=== PATIENT | female | born 1990 | race Two or more races ===

== ENCOUNTER 2017-12-23 21:25 | Inpatient (IN) | payer OTHER ==
[2017-12-23] MEDS ORDERED: CLINDAMYCIN 900 MG PREMIX IVPB 900 MG/50 ML BAG IVPB ONE (22:11)
[2017-12-23] MEDS ORDERED: TUBERCULIN PPD 5 TU/0.1ML SYRINGE (IN PATIENT USE ONLY) ID ONE (22:14)
[2017-12-23] MEDS ORDERED: ELECTROLYTE-148 SOLN 1,000 ML IV SCH (22:15)
--- NOTE | 2017-12-23 22:20 | HP ---
Past Medical History - Admission History of Present Illness: 27 up @ 40 2/7 wks by first trimester ultrasound, EDC 12/21/2017 complicated by: 1. GBS positive, Penicillin allergy Culture sensitive to clindamycin, 11/24/2017 2. Personal history of pyloric stenosis s/p repair as a child 3. RUQ pain at 25 wks, found to have gallbladder polyp and sludge Patient reports with chief complaint of contractions which began 2 days ago. She reports increased in intensity and frequency at approximately 2100. She endorses movement, denies leakage of fluid or vaginal bleeding. Limitations to Obtaining History: No Limitations - Past Medical History Cardiovascular: No: HTN Pulmonary: No: Asthma Gastrointestinal: No: GERD ...: 1 ...Para: 0 ...Term: 0 ...: 0 ...Spon : 0 ...Induced : 0 ...EDC by Sono: 12/21/17 Heme/Onc: No: Anemia - Past Surgical History Hx Myomectomy: No Hx Transabdominal Cerclage: No Additional Surgical History: Pyloric Stenosis repair - Smoking History Have you smoked in the past 12 months: No - Alcohol/Substance Use Hx Alcohol Use: No History of Substance Use: reports: None - Social History History of Recent Travel: No Home Medications - Allergies Allergies/Adverse Reactions: Allergies Allergy/AdvReac Type Severity Reaction Status Date / Time Penicillins Allergy Severe Verified 12/22/17 06:19 - Home Medications Home Medications: Ambulatory Orders Vit Calc,Iron,Folic [ Vitamins] 1 each PO DAILY 12/22/17 Family Disease History - Family Disease History Family History: Denies Review of Systems - Review of Systems Constitutional: reports: No Symptoms HENT: reports: No Symptoms Cardiovascular: reports: No Symptoms Respiratory: reports: No Symptoms Gastrointestinal: reports: No Symptoms Genitourinary: reports: No Symptoms Breasts: reports: No Symptoms Reported Musculoskeletal: reports: No Symptoms Integumentary: reports: No Symptoms Neurological: reports: No Symptoms Endocrine: reports: No Symptoms Hematology/Lymphatic: reports: No Symptoms Psychiatric: reports: No Symptoms Physical Exam - Maternity Constitutional: Yes: Well Nourished, No Distress, Calm Cardiovascular: Yes: Regular Rate and Rhythm Lungs: Clear to auscultation - Abdominal Exam/OB Fundal Height: 40 Number of Fetuses: Single Contractions: Yes Regularity: Regular Intensity: Mod/Strong Monitor Mode: External Heart Rate (range): 155 Category: I Accelerations: Non-Uniform Decelerations: None - Vaginal Exam/OB Vaginal Bleediing: No Speculum Exam: No Dilatation (cm): 6 Effacement (%): 100 Amniotic Membrane Status: Intact Presentation: Vertex/Position Station: -1 - Physical Exam Psychiatric: Yes: Alert, Oriented - Labs Lab Results: PNL: O positive, antibody negative; RPR NR; HBS Ag Neg; HCV neg; HIV neg; GBS pos, as above; GCT WNL; Hg Jazz WNL; Parvo Non-immune; Varicella Immune Hemorrhage Risk Assessment - Risk Factors Medium Risk Factors: Yes: None High Risk Factors: Yes: None Risk Score: 1 Risk Level: Medium Risk Assessment/Plan 27 yo @ 40+ wks active labor 1. Consents reviewed and signed 2. Routine labs collected and sent 3. GBS positive - clindamycin resistant 4. Category I FHT 5. Patient desires epidural for pain control 6. Will proceed with expectant management
[2017-12-23] MEDS ORDERED: CLINDAMYCIN PHOSPHATE 600 MG/4 ML VIAL ONE (22:34)
[2017-12-23 22:46] LABS: BASO % 0.2 % (0-2.0); EOS % 0.2 % (0-4.5); HEMATOCRIT 34.8 % (32.4-45.2); HEMOGLOBIN 11.7 GM/dL (10.7-15.3); LYMPH % 15.3 % (8-40); MCH 28.4 pg (25.7-33.7); MCHC 33.7 g/dl (32.0-36.0); MEAN CELL VOLUME 84.3 fl (80-96); MEAN PLT VOLUME 9.4 fl (7.5-11.1); MONO % 6.7 % (3.8-10.2); NEUT % 77.6 % (42.8-82.8); PLATELET COUNT 250 K/MM3 (134-434); RBC 4.12 M/mm3 (3.60-5.2); RDW 15.4 % (11.6-15.6); WHITE BLOOD COUNT 13.3 K/mm3 (4.0-10.0)
[2017-12-23 22:58] LABS: INR 0.96 (0.82-1.09); PROTHROMBIN TIME (PATIENT) 10.8 SEC (9.98-11.88)
[2017-12-23 23:05] LABS: ANION GAP 6 (8-16); BLOOD UREA NITROGEN 8 mg/dL (7-18); CALCIUM 8.8 mg/dL (8.5-10.1); CHLORIDE 106 mmol/L (98-107); CO2 25 mmol/L (21-32); CREATININE 0.6 mg/dL (0.55-1.02); GLUCOSE,RANDOM 94 mg/dL (74-106); POTASSIUM 4.1 mmol/L (3.5-5.1); SODIUM 137 mmol/L (136-145)
[2017-12-23] MEDS ORDERED: FENTANYL/BUPIVACAINE/NS/PF - PCEA - 50 ML DISP.SYRIN EP ONE (23:09)
[2017-12-23] MEDS ORDERED: BUPIVACAINE HCL/PF 0.25% (2.5MG/ML) 10 ML VIAL ONE (23:12)
[2017-12-23] MEDS ORDERED: NALOXONE HCL 0.4 MG/ML VIAL IVPUSH PRN (23:38)
[2017-12-23] MEDS ORDERED: FENTANYL/BUPIVACAINE/NS/PF - PCEA - 50 ML DISP.SYRIN EP SCH (23:45)
--- NOTE | 2017-12-24 00:29 | PN ---
Ante-Partal Exam - Subjective Subjective: Patient comfortable s/p epidural Vital Signs: Vital Signs Temperature 97.6 F 12/24/17 00:00 Pulse Rate 84 12/23/17 23:40 Respiratory Rate 20 12/23/17 23:40 Blood Pressure 123/80 12/23/17 23:40 O2 Sat by Pulse Oximetry (%) 100 12/23/17 23:40 Bleeding: No Headache: No Visual changes: No Right upper quadrant pain: No - Contractions Contractions: Yes Regularity: Regular Intensity: Unaware Monitor Mode: External - Exam during Labor Heart Rate: 135 Variability: Moderate Category: I Monitor Accelerations: Present Monitor Decelerations: None Exam: Vaginal Dilatation (cm): 7 Amniotic Membrane Status: Ruptured Amniotic Fluid: Clear Presentation: Vertex Station: 0 - Intrapartum Hemorrhage Risk Medium Risk Factors: None High Risk Factors: None Risk Score: 0 Risk Level: Low Risk - Assessment/Plan Assessment/Plan: 27 yo @ 40 wks active labor 1. AROM performed, clear fluid 2. GBS positive, on clindamycin 3. Category I FHT 4. Pain well controlled with epidural 5. Will proceed with expectant management
[2017-12-24] MEDS ORDERED: FENTANYL/BUPIVACAINE/NS/PF - PCEA - 50 ML DISP.SYRIN EP ONE ×4 (03:29→14:15)
[2017-12-24] MEDS: CLINDAMYCIN 600MG PREMIX IVPB 600 MG/50 ML BAG IVPB SCH ×3 (04:00→18:04)
[2017-12-24] MEDS ORDERED: ELECTROLYTE-148 SOLN 1,000 ML IV ONE (04:30)
--- NOTE | 2017-12-24 04:44 | PN ---
Ante-Partal Exam - Subjective Subjective: Patient reports contractions improved s/p epidural. Reports orr catheter causes discomfort. Vital Signs: Vital Signs Temperature 98.9 F 12/24/17 04:00 Pulse Rate 84 12/24/17 03:15 Respiratory Rate 20 12/24/17 03:15 Blood Pressure 118/80 12/24/17 03:15 O2 Sat by Pulse Oximetry (%) 98 12/24/17 03:15 Bleeding: No Headache: No Visual changes: No Right upper quadrant pain: No - Contractions Contractions: Yes Regularity: Regular Intensity: Unaware Monitor Mode: External - Exam during Labor Heart Rate: 130 Variability: Moderate Category: I Monitor Decelerations: None Exam: Vaginal Dilatation (cm): 7-8 Effacement (%): 100 Amniotic Membrane Status: Ruptured Presentation: Vertex Station: 0 - Intrapartum Hemorrhage Risk Medium Risk Factors: None High Risk Factors: None Risk Score: 0 Risk Level: Low Risk - Assessment/Plan Assessment/Plan: 27 yo active labor 1. Inadequate cervical change. IUPC placed; Inadequate contractions noted. Will start pitocin 2. GBS pos, on clinda 3. Pain well controlled with epidural 4. Will continue expectant management
[2017-12-24] MEDS ORDERED: OXYTOCIN 30 UNITS in 0.9% NS 30 UNIT/500 ML INFUS.BAG IVPB SCH (04:45)
--- NOTE | 2017-12-24 11:12 | PN ---
Ante-Partal Exam - Subjective Subjective: Patient reports pressure Vital Signs: Vital Signs Temperature 98.9 F 12/24/17 11:00 Pulse Rate 74 12/24/17 11:00 Respiratory Rate 18 12/24/17 11:00 Blood Pressure 120/68 12/24/17 11:00 O2 Sat by Pulse Oximetry (%) 98 12/24/17 06:30 Bleeding: Yes (bloody show) Headache: No Visual changes: No Right upper quadrant pain: No - Contractions Contractions: Yes Regularity: Regular Monitor Mode: External - Exam during Labor Heart Rate: 140 Variability: Moderate Category: I Monitor Accelerations: Present Monitor Decelerations: None Exam: Vaginal Dilatation (cm): 9.5 Effacement (%): 100 Amniotic Membrane Status: Bulging Presentation: Vertex Station: +2 - Intrapartum Hemorrhage Risk Medium Risk Factors: None High Risk Factors: None Risk Score: 0 Risk Level: Low Risk - Assessment/Plan Assessment/Plan: 27 yo active labor 1. unchanged cervix in 2 hours. Unable to reduce cervix. discussed protracted labor curve. Reviewed possible etiologies of labor dystocia including inadequate contractions, CPD Reviewed risk of shoulder dystocia, resultant neurologic injury and complications Discussed offer for - patient declines at this time Plan to monitor and reassess in 1 hour 2. GBS pos, on clindamycin 3. Pain well controlled with epidural 4. Will continue to monitor
--- NOTE | 2017-12-24 15:10 | PN ---
Progress Note (short form) - Note Progress Note: Patient examined found to be FD, +1 station, pushing for approximately 2.5 hours. Discussed poor descent of head, discussed delivery via delivery. Discussed risks including but not limited to infection, bleeding requiring transfusion and damage to surrounding organs such as the bowel or bladder. Discussed risk of injury to infant. Discussed risk of wound infection and separation. Discussed need for planning of future children and possibility of abnormal placentation. All questions answered. Patient expressed understanding. Nursing and OR staff notified. Will proceed to OR
[2017-12-24] MEDS ORDERED: PHENYLEPHRINE HCL 10 MG/1 ML SINGLE DOSE VIAL ONE (15:21)
[2017-12-24] MEDS ORDERED: LIDOCAINE HCL/PF 2% SDV 5ML VIAL ONE (15:29)
[2017-12-24] MEDS ORDERED: OXYTOCIN 10 UNITS/ML VIAL ONE (15:34)
[2017-12-24] MEDS ORDERED: MIDAZOLAM HCL 2 MG/2 ML SINGLE DOSE VIAL ONE (15:49)
[2017-12-24 16:23] LABS: ARTERIAL BLOOD GAS BASE EXCESS -1.5 meq/l (-2-2); ARTERIAL BLOOD GAS PCO2 51.9 mmHg (35-45); ARTERIAL BLOOD GAS pH 7.31 (7.35-7.45)
[2017-12-24 16:29] LABS: VENOUS PC02 41.8 mmHg (38-52); VENOUS PH 7.36 (7.32-7.42)
[2017-12-24 16:30] LABS: VENOUS PO2 23.7 mmHg (28-48)
[2017-12-24] MEDS ORDERED: WITCH HAZEL 50% (TUCKS) 40 PAD/JAR PAD TP PRN (16:30)
[2017-12-24] MEDS ORDERED: IBUPROFEN 800 MG/8 ML IJ IVPB PRN (16:30)
[2017-12-24] MEDS ORDERED: SENNOSIDES/DOCUSATE COMBO (SENNA PLUS) TABLET (UD) PO PRN (16:30)
[2017-12-24] MEDS ORDERED: BENZOCAINE 28 GM HEMORRHOIDAL OINTMENT TP PRN (16:30)
[2017-12-24] MEDS ORDERED: BENZOCAINE 20% 57 GM BOTTLE TP PRN (16:30)
[2017-12-24] MEDS ORDERED: METHYLERGONOVINE MALEATE 0.2 MG/1 ML AMP IM PRN (16:30)
--- NOTE | 2017-12-24 16:30 | PN ---
Delivery - Delivery Section: Primary Type of Anesthesia: Epidural EBL (cc): 700 Delivery, Single - Condition of Infant Gender: Female Weight: 7 lb 13 oz Position: Right, OT - 1 Minute Total Score: 9 - [place] Feeding Plan Initial Plan: Elected not to breastfeed exclusively throughout hospitalization Remarks - Remarks Remarks: Surgeon: Con; Assist: Elia; Anesthesia: Dr. Drummond EBL 700 IVF 1100 UOP 350 Dictation: [id number]
[2017-12-24 16:36] LABS: ARTERIAL BLD GAS O2 SATURATION 10.2 % (90-98.9); ARTERIAL BLOOD GAS PO2 10.8 mmHg (80-100)
[2017-12-24] MEDS ORDERED: ONDANSETRON 4 MG/2 ML VIAL IVPUSH PRN (16:47)
[2017-12-24] MEDS ORDERED: OXYTOCIN 20 UNITS in 0.9% NS 20 UNIT/1,000 ML INFUS.BAG IV SCH (17:00)
[2017-12-24] MEDS ORDERED: OXYTOCIN 20 UNITS in 0.9% NS 20 UNIT/1,000 ML INFUS.BAG IV ONE (17:08)
--- NOTE | 2017-12-24 17:20 | OP ---
DATE OF OPERATION: 12/24/2017 ATTENDING PHYSICIAN: Raya Andujar MD PREOPERATIVE DIAGNOSES: Intrauterine , 40 weeks, failure to descend. POSTOPERATIVE DIAGNOSES: Intrauterine , 40 weeks, failure to descend. SURGEON: Raya Andujar MD COMMUNICATIONS FIELD TECHNICIAN: Akbar Rodrigez MD ANESTHESIA: Emmie Drummond DO. Spinal. ESTIMATED BLOOD LOSS: 700. URINE OUTPUT: 350. FLUIDS GIVEN: 1100. FINDINGS: Female , ROT position, Apgars 9 and 9, weight 7 pounds 13 ounces, 19-1/2 inches, normal tubes and ovaries bilaterally. INDICATION: The patient is a 27-year-old, 1, para 0, at 40 weeks, who presented in labor. She progressed to fully dilated, pushed for approximately 2 hours, without descent of head. She was counseled regarding delivery. She was counseled regarding risks, benefits, alternatives, and complications with procedure, including infection, bleeding, damage to surrounding organs such as bowel, bladder, ureters, injury to , timing of future . She expressed understanding, was brought to the operating room. DESCRIPTION OF PROCEDURE: When anesthesia was found to be adequate, patient was prepped and draped in normal sterile fashion, placed in dorsal supine position with leftward tilt. An approximately 11-cm skin incision was made with a knife and carried down to the underlying rectus muscle using the Bovie electrocautery. The fascia was nicked in the midline, extended laterally using the Leal scissors. The superior portion of the fascial incision was tented up using Ghada clamps, dissected off underlying rectus muscle using the Leal scissors. Attention was brought to the inferior portion, where in a similar fashion it was tented up using Ghada clamps, dissected off underlying rectus muscle using the Leal scissors. The rectus muscles were in midline, the peritoneum was entered bluntly and this incision was extended superiorly and inferiorly using the Metzenbaum scissors. The vesicouterine peritoneum was entered sharply and a bladder flap was created digitally. The hysterotomy was performed, clear fluid was noted, and the fascial incision was extended laterally using the bandage scissors. The infant' s head was brought to the hysterotomy site and it was delivered, followed by shoulders and body without difficulty. Cord was clamped and cut, and cord blood and cord gases were collected and sent. The infant was handed to awaiting NICU staff present for delivery. The placenta was manually extracted. The uterus was cleared of all clot and debris. The uterus was closed using 0 Biosyn in a running layer, a second layer as an imbricated layer. The vesicouterine peritoneum was reapproximated. All gutters were cleared of all clot and debris. The bilateral adnexa were found to be normal-appearing. Copious irrigation was performed. The peritoneum was closed using 2-0 Biosyn in running fashion. The rectus muscles were reapproximated using 0 Biosyn in an interrupted fashion. The fascia was closed using 0 Vicryl in a running fashion. The skin was reapproximated using 3-0 Vicryl. The patient tolerated procedure well. Estimated blood loss was 700 mL. The patient was brought to the recovery room in stable condition. Tawanda [id number] MTDD
[2017-12-25] MEDS: IBUPROFEN 600 MG TABLET (FP) PO PRN ×4 (06:17→21:12)
[2017-12-25] MEDS: ACETAMINOPHEN 325 MG TABLET (FP) PO PRN ×4 (06:17→21:13)
[2017-12-25 07:29] LABS: BASO % 0.2 % (0-2.0); EOS % 0.1 % (0-4.5); LYMPH % 14.4 % (8-40); MCH 28.4 pg (25.7-33.7); MCHC 33.4 g/dl (32.0-36.0); MEAN CELL VOLUME 84.9 fl (80-96); MEAN PLT VOLUME 8.8 fl (7.5-11.1); MONO % 5.5 % (3.8-10.2); NEUT % 79.8 % (42.8-82.8); PLATELET COUNT 197 K/MM3 (134-434); RBC 3.18 M/mm3 (3.60-5.2); WHITE BLOOD COUNT 17.8 K/mm3 (4.0-10.0)
[2017-12-25] MEDS: ENOXAPARIN NA (PORCINE) 40 MG/0.4 ML DISP.SYRIN SQ SCH (09:24)
--- NOTE | 2017-12-25 09:28 | PN ---
Progress Note, Physician Chief Complaint: s/p c section post op day one History of Present Illness: under epidural anesthesia - Current Medication List Current Medications: Active Medications Acetaminophen (Tylenol -) 650 mg PO Q4H PRN PRN Reason: FEVER Last Admin: 12/25/17 06:17 Dose: 650 mg Benzocaine (Americaine 20% [place] -) 1 spray TP PRN PRN PRN Reason: Pain - Topical Benzocaine (Americaine Ointment -) 1 applic TP PRN PRN PRN Reason: Pain - Topical Bisacodyl (Dulcolax Suppository -) 10 mg RC PRN PRN PRN Reason: CONSTIPATION Diphenhydramine HCl (Benadryl Injection -) 25 mg IVPUSH Q4H PRN PRN Reason: Pruritis Enoxaparin Sodium (Lovenox -) 40 mg SQ DAILY [facility] Parenteral Electrolytes (Plasma-Lyte 148 -) 1,000 mls @ 125 mls/hr IV ASDIR [facility] Last Admin: 12/23/17 22:00 Dose: 125 mls/hr Oxytocin/Sodium Chloride (Normal Saline+20 Units Oxytocin -) 20 unit in 1,000 mls @ 125 mls/hr IV ASDIR [facility] Last Admin: 12/24/17 17:15 Dose: 125 mls/hr Ibuprofen (Motrin -) 600 mg PO Q4H PRN PRN Reason: PAIN LEVEL 1 - 3 Last Admin: 12/25/17 06:17 Dose: 600 mg Ibuprofen (Caldolor Injection -) 800 mg IVPB Q8H PRN PRN Reason: PAIN LEVEL 1 - 3 Last Admin: 12/24/17 22:29 Dose: 800 mg Methylergonovine Maleate (Methergine Injection -) 0.2 mg IM Q4H PRN PRN Reason: Excessive Bleeding (L&D) Naloxone HCl (Narcan -) 0.4 mg IVPUSH DAILY PRN PRN Reason: Sedation Ondansetron HCl (Zofran Injection) 4 mg IVPUSH Q4H PRN PRN Reason: NAUSEA Oxycodone HCl (Roxicodone -) 5 mg PO Q4H PRN PRN Reason: PAIN LEVEL 4 - 6 Oxycodone HCl (Roxicodone -) 10 mg PO Q4H PRN PRN Reason: PAIN LEVEL 7 - 10 Multivit/Folic Acid/Iron ( Vitamins (Sjr) -) 1 tab PO DAILY JAYDEN Senna/Docusate Sodium (Pericolace -) 2 tablet PO HS PRN PRN Reason: CONSTIPATION Simethicone (Mylicon -) 80 mg PO Q4H PRN PRN Reason: GAS Witch Josie/Glycerin (Tucks Pads -) 1 pad TP DAILY PRN PRN Reason: Pain - Topical - Objective Vital Signs: Vital Signs Temperature 97.8 F 12/25/17 08:34 Pulse Rate 82 12/25/17 08:34 Respiratory Rate 20 12/25/17 09:00 Blood Pressure 95/53 12/25/17 08:34 O2 Sat by Pulse Oximetry (%) 99 12/24/17 17:32 Constitutional: Yes: Well Nourished Cardiovascular: Yes: WNL Respiratory: Yes: WNL Gastrointestinal: Yes: WNL Neurological: Yes: WNL Labs: CBC, BMP 12/25/17 07:12 12/23/17 22:40 INR, PTT INR 0.96 (0.82-1.09) 12/23/17 22:40 Assessment/Plan No adverse effect of anesthetic, pain controlled, motor sensory function back to normal. Dept of anesthesia will sign off care at this time.
--- NOTE | 2017-12-25 09:44 | PN ---
Post Progress Note - Subjective Subjective: No complaints Post Day: 1 Type of Delivery: Primary C/S Vital Signs: Vital Signs Temperature 97.8 F 12/25/17 08:34 Pulse Rate 82 12/25/17 08:34 Respiratory Rate 20 12/25/17 09:00 Blood Pressure 95/53 12/25/17 08:34 O2 Sat by Pulse Oximetry (%) 99 12/24/17 17:32 Breast Exam: Yes: Soft Uterus: Yes: Fundus Firm, Fundus below umbilicus, Non-tender Incision: Yes: Dressing dry and intact Abdomen/GI: Yes: Abdomen soft, Tolerating PO Lochia: Yes: Rubra Lochia, amount: Small Extremities: Yes: Calves non-tender Perineum: Yes: Intact Activity: Ambulating - Labs Labs: CBC WBC 17.8 K/mm3 (4.0-10.0) H D 12/25/17 07:12 RBC 3.18 M/mm3 (3.60-5.2) L D 12/25/17 07:12 Hgb 9.0 GM/dL (10.7-15.3) L D 12/25/17 07:12 Hct 27.0 % (32.4-45.2) L D 12/25/17 07:12 MCV 84.9 fl (80-96) 12/25/17 07:12 MCH 28.4 pg (25.7-33.7) 12/25/17 07:12 MCHC 33.4 g/dl (32.0-36.0) 12/25/17 07:12 RDW 16.0 % (11.6-15.6) H 12/25/17 07:12 Plt Count 197 K/MM3 (134-434) D 12/25/17 07:12 MPV 8.8 fl (7.5-11.1) 12/25/17 07:12 Neutrophils % 79.8 % (42.8-82.8) 12/25/17 07:12 Lymphocytes % 14.4 % (8-40) 12/25/17 07:12 Monocytes % 5.5 % (3.8-10.2) 12/25/17 07:12 Eosinophils % 0.1 % (0-4.5) 12/25/17 07:12 Basophils % 0.2 % (0-2.0) 12/25/17 07:12 Assessment/Plan 27yo P1 s/p primary LT C/S, doing well stable, afebrile. Asymptomatic for anemia care instructions reviewed. Continue routine postop care. Ambulation encouraged.
[2017-12-25] MEDS: SIMETHICONE 80 MG TAB.CHEW (FP) PO PRN ×3 (10:15→21:12)
[2017-12-25] MEDS: PRENATAL VITAMINS W/ FOLIC ACID TABLET (FP) PO SCH (11:56)
[2017-12-25] MEDS ORDERED: BISACODYL 10 MG SUPP.RECT RC PRN (16:32)
[2017-12-25] MEDS: oxyCODONE HCL 5 MG TABLET PO PRN (23:11)
[2017-12-26] MEDS: SIMETHICONE 80 MG TAB.CHEW (FP) PO PRN ×4 (07:12→23:34)
[2017-12-26] MEDS: IBUPROFEN 600 MG TABLET (FP) PO PRN ×4 (07:12→23:37)
[2017-12-26] MEDS: oxyCODONE HCL 5 MG TABLET PO PRN ×4 (07:13→23:36)
[2017-12-26] MEDS: ACETAMINOPHEN 325 MG TABLET (FP) PO PRN ×2 (09:34→23:36)
[2017-12-26] MEDS: PRENATAL VITAMINS W/ FOLIC ACID TABLET (FP) PO SCH (09:34)
[2017-12-26] MEDS: ENOXAPARIN NA (PORCINE) 40 MG/0.4 ML DISP.SYRIN SQ SCH (10:47)
--- NOTE | 2017-12-27 08:22 | DS ---
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 Vital Signs: Vital Signs Temperature 98.6 F 12/26/17 21:13 Pulse Rate 87 12/26/17 21:13 Respiratory Rate 18 12/26/17 21:13 Blood Pressure 104/62 12/26/17 21:13 O2 Sat by Pulse Oximetry (%) 99 12/24/17 17:32 Constitutional: Yes: Well Nourished, No Distress, Calm Eyes: Yes: WNL, Conjunctiva Clear HENT: Yes: WNL, Atraumatic, Normocephalic Neck: Yes: WNL, Supple, Trachea Midline Cardiovascular: Yes: WNL, Regular Rate and Rhythm Respiratory: Yes: WNL, Regular, CTA Bilaterally Gastrointestinal: Yes: Normal Bowel Sounds, Soft ...Rectal Exam: Yes: Deferred Renal/: Yes: WNL Internal Exam Deferred: Yes ....Post : Yes: Uterus firm, Uterus non-tender, Slight lochia rubra Breast(s): Yes: WNL Musculoskeletal: Yes: WNL Extremities: Yes: WNL Edema: No Integumentary: Yes: WNL Wound/Incision: Yes: Clean/Dry, Well Approximated, Sutures Intact, Steri Strips , Open to air Neurological: Yes: WNL, Alert, Oriented ...Motor Strength: WNL Psychiatric: Yes: WNL, Alert, Oriented Labs: CBC, BMP 12/25/17 07:12 12/23/17 22:40 Delivery - Delivery Section: Primary Type of Anesthesia: Epidural Episiotomy/Laceration: None EBL (cc): 700 Delivery, Single - Stages of Labor Date 1st Stage Initiatied: 12/24/17 Time 1st Stage Initiated: 20:00 Date 2nd Stage Initiated: 12/24/17 Time 2nd Stage Initiated: 12:50 Date of Delivery: 12/24/17 Time of Delivery: 15:42 Time Placenta Delivered: 15:43 Placenta: Yes: Manual Removal, Normal Configuration - Condition of Infant Healthcare Analyst/It Disaster Recovery Manager Present: Yes Name: Angely Pryor Infant Gender: Female Weight: 3.544 kg Position: Right, OT Total Hours ROM (Hrs/Mins): 15H23M - 1 Minute Total Score: 9 5 Minutes Total Score: 9 - Feeding Plan Initial Plan: Elected not to breastfeed exclusively throughout hospitalization Discharge Summary Reason For Visit: LABOR ADMIT Labor, spontaneous Post term Arrest of dilation Procedures: Principal: Primary LT C/S Hospital Course: Normal recovery Condition: Good - Instructions Diet, Activity, Other Instructions: Physical activity Resume your normal everyday activity as tolerated no heavy lifting or exercise until seen by your surgeon. You may walk unlimited refugio of and climb stairs. You may resume driving the car when you feel safe and comfortable behind the wheel. No sexual activity as instructed. Wound care If you have a bandage, leave it on, and keep dry for 48-72 hours. After that time discard the outer bandage. If they are tapes on the skin under the out of bandage leave them in place. They will peel off in the next 7 to 10 days. Do Not Peel them off. You may shower the day after surgery. If there are tapes present on the skin, you may shower over them. Diet There are no dietary restrictions. Eat healthy, high-fiber foods. Drink 6 to 8 glasses of liquid each day. This will assist in keeping your bowels are regular. Pain management You may take Tylenol or acetaminophen or Ibuprofen (for example, Motrin, Advil etc.) from my pain prescription medication is ordered should be taken as prescribed for moderate to severe pain. Call MD for any of the following: Severe pain not relieved by medication Fever of 101 or higher Excessive bleeding or drainage on dressing Inability to urinate Referrals: Akbar Rodrigez MD [Staff Physician] - Disposition: HOME - Home Medications Comprehensive Discharge Medication List: Ambulatory Orders Vit Calc,Iron,Folic [ Vitamins] 1 each PO DAILY 12/22/17
--- NOTE | 2017-12-27 08:29 | PN ---
Post Progress Note - Subjective Subjective: Pt w/o complaints Post Day: 3 Type of Delivery: Primary C/S Vital Signs: Vital Signs Temperature 98.6 F 12/26/17 21:13 Pulse Rate 87 12/26/17 21:13 Respiratory Rate 18 12/26/17 21:13 Blood Pressure 104/62 12/26/17 21:13 O2 Sat by Pulse Oximetry (%) 99 12/24/17 17:32 Breast Exam: Yes: Soft Uterus: Yes: Fundus Firm Incision: Yes: Sutures intact Abdomen/GI: Yes: Abdomen soft, Passing flatus, Tolerating PO Lochia: Yes: Rubra Lochia, amount: Small Extremities: Yes: Calves non-tender Perineum: Yes: Intact Activity: Ambulating - Labs Labs: CBC WBC 17.8 K/mm3 (4.0-10.0) H D 12/25/17 07:12 RBC 3.18 M/mm3 (3.60-5.2) L D 12/25/17 07:12 Hgb 9.0 GM/dL (10.7-15.3) L D 12/25/17 07:12 Hct 27.0 % (32.4-45.2) L D 12/25/17 07:12 MCV 84.9 fl (80-96) 12/25/17 07:12 MCH 28.4 pg (25.7-33.7) 12/25/17 07:12 MCHC 33.4 g/dl (32.0-36.0) 12/25/17 07:12 RDW 16.0 % (11.6-15.6) H 12/25/17 07:12 Plt Count 197 K/MM3 (134-434) D 12/25/17 07:12 MPV 8.8 fl (7.5-11.1) 12/25/17 07:12 Neutrophils % 79.8 % (42.8-82.8) 12/25/17 07:12 Lymphocytes % 14.4 % (8-40) 12/25/17 07:12 Monocytes % 5.5 % (3.8-10.2) 12/25/17 07:12 Eosinophils % 0.1 % (0-4.5) 12/25/17 07:12 Basophils % 0.2 % (0-2.0) 12/25/17 07:12 Assessment/Plan 27yo POD#3 s/p primary LTC/S doing well, stable, afebrile. Asymptomatic for anemia. Post op care reviewed. Continue routine care. Ambulation encouraged Advance diet as tolerated.
[2017-12-27] MEDS: SIMETHICONE 80 MG TAB.CHEW (FP) PO PRN ×3 (09:22→22:39)
[2017-12-27] MEDS: oxyCODONE HCL 5 MG TABLET PO PRN (09:22)
[2017-12-27] MEDS: ACETAMINOPHEN 325 MG TABLET (FP) PO PRN ×3 (09:23→22:38)
[2017-12-27 10:25] LABS: BASO % 0.1 % (0-2.0); EOS % 0.4 % (0-4.5); HEMATOCRIT 25.8 % (32.4-45.2); HEMOGLOBIN 8.6 GM/dL (10.7-15.3); LYMPH % 16.7 % (8-40); MCH 28.2 pg (25.7-33.7); MCHC 33.2 g/dl (32.0-36.0); MEAN CELL VOLUME 84.8 fl (80-96); MEAN PLT VOLUME 8.6 fl (7.5-11.1); NEUT % 78.8 % (42.8-82.8); PLATELET COUNT 259 K/MM3 (134-434); RBC 3.04 M/mm3 (3.60-5.2); RDW 16.3 % (11.6-15.6); WHITE BLOOD COUNT 13.7 K/mm3 (4.0-10.0)
[2017-12-27] MEDS: ENOXAPARIN NA (PORCINE) 40 MG/0.4 ML DISP.SYRIN SQ SCH (10:26)
[2017-12-27] MEDS: PRENATAL VITAMINS W/ FOLIC ACID TABLET (FP) PO SCH (10:33)
[2017-12-27] MEDS: IBUPROFEN 600 MG TABLET (FP) PO PRN ×2 (17:21→22:38)
[2017-12-28] MEDS: ACETAMINOPHEN 325 MG TABLET (FP) PO PRN (08:09)
[2017-12-28] MEDS: IBUPROFEN 600 MG TABLET (FP) PO PRN (08:10)
[2017-12-28] MEDS: SIMETHICONE 80 MG TAB.CHEW (FP) PO PRN (08:11)
--- NOTE | 2017-12-28 09:15 | PN ---
Post Progress Note - Subjective Subjective: Patient without acute complaints. Reports tolerating oral intake without nausea or vomiting. Ambulating without dizziness. Denies fevers or chills. Pain well controlled with oral pain medication. without difficulty. Passing flatus. Post Day: 4 Type of Delivery: Primary C/S Vital Signs: Vital Signs Temperature 98.4 F 12/27/17 21:00 Pulse Rate 75 12/27/17 21:00 Respiratory Rate 20 12/27/17 21:00 Blood Pressure 108/65 12/27/17 21:00 O2 Sat by Pulse Oximetry (%) 99 12/24/17 17:32 Breast Exam: Yes: Engorged Uterus: Yes: Fundus Firm Incision: Yes: Sutures intact. No: Redness, Oozing Abdomen/GI: Yes: Abdomen soft, Abdominal Distention (soft mild distension), Tender (mild incisional), Passing flatus, Tolerating PO Lochia: Yes: Serosa Lochia, amount: Small Extremities: Yes: Calves non-tender, Edema (trace) Activity: Ambulating - Labs Labs: CBC WBC 13.7 K/mm3 (4.0-10.0) H 12/27/17 09:51 RBC 3.04 M/mm3 (3.60-5.2) L 12/27/17 09:51 Hgb 8.6 GM/dL (10.7-15.3) L 12/27/17 09:51 Hct 25.8 % (32.4-45.2) L 12/27/17 09:51 MCV 84.8 fl (80-96) 12/27/17 09:51 MCH 28.2 pg (25.7-33.7) 12/27/17 09:51 MCHC 33.2 g/dl (32.0-36.0) 12/27/17 09:51 RDW 16.3 % (11.6-15.6) H 12/27/17 09:51 Plt Count 259 K/MM3 (134-434) D 12/27/17 09:51 MPV 8.6 fl (7.5-11.1) 12/27/17 09:51 Neutrophils % 78.8 % (42.8-82.8) 12/27/17 09:51 Lymphocytes % 16.7 % (8-40) 12/27/17 09:51 Monocytes % 4.0 % (3.8-10.2) 12/27/17 09:51 Eosinophils % 0.4 % (0-4.5) D 12/27/17 09:51 Basophils % 0.1 % (0-2.0) 12/27/17 09:51 Assessment/Plan 27 yo POD # 4 s/p primary CD, afebrile vital signs stable, doing well 1. Patient stable for discharge home today. 2. Patient encouraged to contact MD for: - Severe pain not controlled by oral pain medication - Fevers or chills - Nausea or vomiting, intolerance of oral intake - Incision redness, tenderness or discharge 3. Patient to follow up in office in 1-2 weeks for incision check, 4-6 weeks for visit
[2017-12-28 09:17] VITALS: BP 116/69; PULSE 58; TEMP 97.7
[2017-12-28] MEDS: PRENATAL VITAMINS W/ FOLIC ACID TABLET (FP) PO SCH (09:35)
[2017-12-28] MEDS: ENOXAPARIN NA (PORCINE) 40 MG/0.4 ML DISP.SYRIN SQ SCH (09:35)
--- NOTE | 2018-01-01 14:40 | PATH ---
Surgical Pathology Report Patient Name: RASHMI CHACKO [facility]. Rec. #: [id number] /Age/Gender: 1990 (Age: 27) / F Account: [id number] Location: [facility] OBS/RESOURCE AGENT Taken: 12/25/2017 Received: 12/25/2017 Reported: 01/01/2018 Physicians: Raya Andujar Specimen(s) Received PLACENTA Clinical History Primary Final Diagnosis PLACENTA, SECTION: 472 g THIRD TRIMESTER PLACENTA WITH TRIVASCULAR UMBILICAL CORD AND MODERATE ACUTE CHORIOAMNIONITIS. Electronically Signed Florina Matias M.D. Gross Description The specimen is received fresh labeled placenta and is a 472 gram, 15.5 x 14.0 x 3.5 cm. placenta with attached membranes and umbilical cord. The attached membranes are rdz, translucent with focal opacities and display focal circumarginate insertion. The umbilical cord measures 10 cm. in length and averages 1.1 cm. in diameter. The cord inserts eccentrically, 3 cm. to the nearest margin. No true knots or strictures are identified. Cut surface of the umbilical cord reveals 3 vessels. The surface is peterson-blue with minimal fibrin deposition and appropriate caliber vessels. The maternal surface is red-brown with focal defects. Sectioning reveals red-brown, spongy parenchyma. No lesions are identified. Offset Duplicating Machine Operator sections are submitted in three cassettes as follows: 1- membrane rolls and umbilical cord; 2-3- full thickness sections of placenta. [facility]2017 [facility]
== END 2017-12-28 13:00 | disposition home or self-care (01) | DRG 766 ==
LOC: JLDR 21:25 → J3W 12-24 17:53
PROVIDERS: ADMIT Obstetrics & Gynecology; ATTEND Obstetrics & Gynecology
PROC: 10D00Z1 Extraction of Products of Conception, Low, Open Approach (ICD-10-PCS; principal; 2017-12-24)
DX: O62.1 Secondary uterine inertia (principal); Z37.0 Single live birth; O99.824 Streptococcus B carrier state complicating childbirth; O48.0 Post-term pregnancy; O99.02 Anemia complicating childbirth; D64.9 Anemia, unspecified; Z3A.40 40 weeks gestation of pregnancy; Z88.0 Allergy status to penicillin
CPT/HCPCS: 36415; 36600; 80048; 82803; 85025; 85610; 85730; 86593; 86850; 86900; 86901; 88307-TC